=== PATIENT | male | born 1960 | race Caucasian/White ===

== ENCOUNTER 2019-02-07 00:28 | Emergency (ER) | payer OTHER ==
[2019-02-07 00:33] VITALS: BP 139/104; PULSE 90; TEMP 97.9; BMI 22.1
--- NOTE | 2019-02-07 01:03 | PDOC ---
History of Present Illness - General Chief Complaint: Injury Stated Complaint: intoxicated,lac to L wrist Time Seen by Provider: 02/07/19 00:33 History Source: Patient Exam Limitations: No Limitations - History of Present Illness Initial Comments: 02/07/19 01:03 This is a 58-year-old male who is intoxicated. Patient fell onto a glass table breaking the glass table and cutting his left wrist area. Patient tetanus is up- to-date. Patient did not hit his head. Patient did not pass out. Patient denies any other injuries. Allergies: as per nursing notes Past Medical History: none Social history: Lives with family. No smoking. No alcohol. No illicit drugs. Surgical history: None General: No fevers or chills, no weakness, no weight loss HEENT: No change in vision. No sore throat,. No ear pain CardioVascular: no chest discomfort. No shortness of breath Respiratory:No cough, or wheezing. Gastrointestinal: no nausea, vomiting, diarrhea or constipation, No rectal bleeding Genitourinary: No dysuria, hematuria, or frequency Musculoskeletal: No joint or muscle pain or swelling, left wrist laceration Neurologic: No headache, vertigo, dizziness or loss of consciousness Psychiatric: nor depression Skin: No rashes or easy bruising Endocrine: no increased thirst or abnormal weight change Allergic: no skin or latex allergy All other systems reviewed and normal GENERAL: The patient is awake, alert, and fully oriented, in no acute distress. HEAD: Normal with no signs of trauma. EYES: Pupils equal, round and reactive to light, extraocular movements intact, sclera anicteric, conjunctiva clear. EXTREMITIES: Left wrist: There is approximately a 2-1/2-3 cm laceration on the palmar side of the left wrist. Area was explored and palpated for foreign body there was no foreign body visible or patient did not express any discomfort on palpation. Neurovascular is intact. There is minimal amount of oozing from the laceration. NEUROLOGICAL: Normal speech, normal gait. PSYCH: Normal mood, normal affect. SKIN: Warm, Dry, normal turgor, no rashes or lesions noted. Procedure note laceration repair: She was cleaned with saline and anesthetized with 1% lidocaine no epinephrine. laceration was closed with a total of 7 sutures interrupted simple of 4-0 Ethilon. Bacitracin and a sterile dressing were applied patient tolerated well Past History - Past Medical History Allergies/Adverse Reactions: Allergies Allergy/AdvReac Type Severity Reaction Status Date / Time Penicillins Allergy Verified 02/07/19 00:37 Home Medications: Ambulatory Orders Unobtainable 02/07/19 COPD: No - Suicide/Smoking/Psychosocial Hx Smoking History: Unknown if ever smoked Have you smoked in the past 12 months: Yes Number of Cigarettes Smoked Daily: 20 If you are a former smoker, when did you quit?: 09/25/14 Cigars Per Day: 0 'Breaking Loose' booklet given: 09/27/14 Hx Alcohol Use: Yes Drug/Substance Use Hx: No Substance Use Type: Alcohol *Physical Exam - Vital Signs Last Vital Signs Temp Pulse Resp BP Pulse Ox 97.9 F 90 16 139/104 H 99 02/07/19 00:32 02/07/19 00:32 02/07/19 00:32 02/07/19 00:32 02/07/19 00:32 *DC/Admit/Observation/Transfer Diagnosis at time of Disposition: Laceration of wrist Qualifiers: Encounter type: initial encounter Laterality: left Qualified Code(s): S61.512A - Laceration without foreign body of left wrist, initial encounter - Discharge Dispostion Disposition: HOME Condition at time of disposition: Good Decision to Admit order: No - Referrals - Patient Instructions Additional Instructions: Suture removal in 6-7 days. Clean the area once or twice a day with some peroxide reapply bacitracin and a Band-Aid for the first 3 days then you can leave it open if you are in an area where it won't get dirty. Return to the emergency department immediately with ANY new, persistent or worsening symptoms. Continue any medications as previously prescribed by your physician. You should follow up with your primary doctor as soon as possible regarding today's emergency department visit. . Please make sure your doctor reviews the results of your emergency evaluation. Thank you for coming to the Emergency Department today for your care. It was a pleasure to see you today. Please note that your evaluation is INCOMPLETE until you follow-up with your doctor. - Post Discharge Activity
== END 2019-02-07 01:06 | disposition home or self-care (01) ==
LOC: JER 00:28 → FER 00:28
PROC: 0HQEXZZ Repair Left Lower Arm Skin, External Approach (ICD-10-PCS; principal; 2019-02-07)
DX: S61.512A Laceration without foreign body of left wrist, initial encounter (principal); W01.110A Fall on same level from slipping, tripping and stumbling with subsequent striking against sharp glass, initial encounter; Y93.89 Activity, other specified; Y92.89 Other specified places as the place of occurrence of the external cause; F17.210 Nicotine dependence, cigarettes, uncomplicated
CPT/HCPCS: 99282-25

== ENCOUNTER 2025-03-26 11:36 | Inpatient (IN) | payer OTHER, MEDICARE ==
[2025-03-26 12:48] LABS: ABSOLUTE IMMATURE GRANULOCYTES 0.01 x10^3/uL (0.0-0.031); BASOPHILS # 0.02 x10^3/uL (0.01-0.08); EOSINOPHIL % 0.8 % (0.8-7.0); EOSINOPHILS # 0.05 x10^3/uL (0.04-0.54); MCHC 34.2 g/dl (32.3-36.5); MEAN CELL VOLUME 103.5 fl (79.0-92.2); MEAN PLT VOLUME 11.3 fl (9.4-12.4); MONOCYTE # 0.41 x10^3/uL (0.30-0.82); MONOCYTE % 6.3 % (5.3-12.2); RDW 13.4 % (12.2-16.4)
[2025-03-26 12:59] LABS: INR 1.02 (0.83-1.09); PROTHROMBIN TIME (PATIENT) 11.3 SEC (9.7-13.0)
[2025-03-26 13:02] LABS: ACTIVATED PTT 28.7 SECONDS (25.2-36.5)
[2025-03-26 13:09] LABS: ALK PHOS 57 U/L (45-117); CO2 27 mmol/L (21-32); CREATININE 1.1 mg/dl (0.6-1.3); GLUCOSE,RANDOM 127 mg/dl (74-106); SGOT/AST 23 U/L (15-37); SGPT/ALT 22 U/L (7-52); TOT PROT 6.7 g/dl (6.4-8.2)
[2025-03-26] MEDS: FUROSEMIDE 40 MG/4 ML INJECTABLE VIAL IVPUSH ONE ×3 (14:20→21:37)
[2025-03-26] MEDS: ASPIRIN 81 MG CHEWABLE TABLETS PO ONE (14:20)
[2025-03-26] MEDS ORDERED: FUROSEMIDE 40 MG/4 ML INJECTABLE VIAL ONE (14:21)
[2025-03-26] MEDS ORDERED: ASPIRIN 81 MG CHEWABLE TABLETS ONE (14:21)
[2025-03-26 14:22] LABS: HIV INTERPRETATION NEGATIVE (NEGATIVE)
[2025-03-26 14:23] LABS: HCV DIAGNOSTIC IN-HOUSE W/RFLX NON-REACTIVE (NONREACTIVE)
[2025-03-26 20:25] VITALS: BMI 26.9
[2025-03-26] MEDS: ATORVASTATIN CA 80 MG TABLET (FP) PO SCH (21:36)
[2025-03-26] MEDS ORDERED: ATORVASTATIN CA 80 MG TABLET (FP) PO SCH (22:00)
[2025-03-27] MEDS ORDERED: FUROSEMIDE 40 MG/4 ML INJECTABLE VIAL IVPUSH SCH ×2 (06:00→10:00)
[2025-03-27 07:43] LABS: EOSINOPHIL % 2.1 % (0.8-7.0); EOSINOPHILS # 0.13 x10^3/uL (0.04-0.54); MCHC 34.3 g/dl (32.3-36.5)
[2025-03-27 07:45] LABS: ABSOLUTE IMMATURE GRANULOCYTES 0.03 x10^3/uL (0.0-0.031); BASOPHILS # 0.06 x10^3/uL (0.01-0.08); IMMATURE PLATELET FRACTION # 12.20 x10^3/uL; MEAN CELL VOLUME 102.9 fl (79.0-92.2); MONOCYTE # 0.58 x10^3/uL (0.30-0.82); MONOCYTE % 9.3 % (5.3-12.2); RDW 13.6 % (12.2-16.4)
[2025-03-27] MEDS: TAMSULOSIN HCL 0.4 MG CAP PO SCH (08:06)
[2025-03-27 08:16] LABS: GLUCOSE,RANDOM 109.0 mg/dL (74-106)
[2025-03-27 08:18] LABS: CO2 27.0 mmol/L (21-32)
[2025-03-27 08:22] LABS: CREATININE 1.41 mg/dL (0.55-1.3); LDL CHOLESTEROL (ONLY SJRH) 92.0 mg/dL (5-100)
[2025-03-27 08:31] LABS: N-TERMINAL BNP 1700.8 pg/mL (0-299.9)
[2025-03-27] MEDS: FUROSEMIDE 40 MG/4 ML INJECTABLE VIAL IVPUSH SCH (09:37)
[2025-03-27] MEDS: ASPIRIN 81 MG CHEWABLE TABLETS PO SCH (09:38)
[2025-03-27] MEDS ORDERED: HYDROCHLOROTHIAZIDE 12.5 MG CAPSULE (FP) PO SCH (10:00)
[2025-03-27] MEDS ORDERED: PATIENT'S OWN MEDICATION (NON-FORMULARY) (Losartan/Hydrochlorothiazide [Losartan-Hctz 100- PO SCH (10:00)
[2025-03-27] MEDS: EMPAGLIFLOZIN (JARDIANCE) 10 MG TABLET PO SCH (11:25)
[2025-03-27] MEDS ORDERED: ALBUTEROL SO4 2.5/IPRATROPIUM 0.5 INH SOL 3 ML VIAL.NEB. NEB PRN (13:43)
[2025-03-27] MEDS: LOSARTAN POTASSIUM 50 MG TABLET PO SCH (14:28)
[2025-03-28 08:15] LABS: ABSOLUTE IMMATURE GRANULOCYTES 0.03 x10^3/uL (0.0-0.031); EOSINOPHILS # 0.13 x10^3/uL (0.04-0.54); MONOCYTE # 0.61 x10^3/uL (0.30-0.82)
[2025-03-28 08:17] LABS: BASOPHILS # 0.05 x10^3/uL (0.01-0.08); EOSINOPHIL % 1.9 % (0.8-7.0); MCHC 33.9 g/dl (32.3-36.5); MEAN CELL VOLUME 102.3 fl (79.0-92.2); MEAN PLT VOLUME 11.2 fl (9.4-12.4); MONOCYTE % 9.0 % (5.3-12.2); RDW 13.7 % (12.2-16.4)
[2025-03-28 09:07] LABS: GLUCOSE,RANDOM 98.0 mg/dL (74-106)
[2025-03-28 09:08] LABS: TOT PROT 6.4 g/dl (6.4-8.2)
[2025-03-28 09:09] LABS: CO2 25.0 mmol/L (21-32)
[2025-03-28 09:10] LABS: ALK PHOS 56.0 U/L (40-150)
[2025-03-28 09:13] LABS: CREATININE 1.21 mg/dL (0.55-1.3); SGOT/AST 26.0 U/L (5-34); SGPT/ALT 22.0 U/L (0-55)
[2025-03-28] MEDS: ENOXAPARIN NA (PORCINE) 40 MG/0.4 ML DISP.SYRIN SQ SCH (09:49)
[2025-03-29] MEDS: EMPAGLIFLOZIN (JARDIANCE) 10 MG TABLET PO SCH (06:26)
[2025-03-29 09:43] LABS: ABSOLUTE IMMATURE GRANULOCYTES 0.03 x10^3/uL (0.0-0.031); BASOPHILS # 0.05 x10^3/uL (0.01-0.08); EOSINOPHIL % 2.1 % (0.8-7.0); EOSINOPHILS # 0.12 x10^3/uL (0.04-0.54); MCHC 34.2 g/dl (32.3-36.5); MEAN CELL VOLUME 103.3 fl (79.0-92.2); MEAN PLT VOLUME 10.2 fl (9.4-12.4); MONOCYTE # 0.56 x10^3/uL (0.30-0.82); MONOCYTE % 9.7 % (5.3-12.2); RDW 13.6 % (12.2-16.4)
[2025-03-29 10:04] LABS: GLUCOSE,RANDOM 147.0 mg/dL (74-106)
[2025-03-29 10:05] LABS: TOT PROT 6.6 g/dl (6.4-8.2)
[2025-03-29 10:06] LABS: CO2 25.0 mmol/L (21-32)
[2025-03-29 10:07] LABS: ALK PHOS 55.0 U/L (40-150)
[2025-03-29 10:10] LABS: CREATININE 1.29 mg/dL (0.55-1.3); SGOT/AST 26.0 U/L (5-34); SGPT/ALT 22.0 U/L (0-55)
[2025-03-30 08:20] LABS: ABSOLUTE IMMATURE GRANULOCYTES 0.02 x10^3/uL (0.0-0.031); BASOPHILS # 0.04 x10^3/uL (0.01-0.08); EOSINOPHIL % 1.9 % (0.8-7.0); EOSINOPHILS # 0.11 x10^3/uL (0.04-0.54)
[2025-03-30 08:21] LABS: IMMATURE PLATELET FRACTION # 14.50 x10^3/uL; MCHC 33.7 g/dl (32.3-36.5); MEAN CELL VOLUME 102.7 fl (79.0-92.2); MEAN PLT VOLUME 11.2 fl (9.4-12.4); MONOCYTE # 0.55 x10^3/uL (0.30-0.82); MONOCYTE % 9.5 % (5.3-12.2); RDW 13.2 % (12.2-16.4)
[2025-03-30 08:53] LABS: GLUCOSE,RANDOM 111.0 mg/dL (74-106); TOT PROT 6.5 g/dl (6.4-8.2)
[2025-03-30 08:54] LABS: CO2 25.0 mmol/L (21-32)
[2025-03-30 08:56] LABS: ALK PHOS 63.0 U/L (40-150)
[2025-03-30 08:59] LABS: CREATININE 1.22 mg/dL (0.55-1.3); SGOT/AST 30.0 U/L (5-34); SGPT/ALT 27.0 U/L (0-55)
[2025-03-30 11:49] VITALS: BP 122/90; RESP 18; TEMP 98
[2025-03-30 13:36] VITALS: PULSE 88
== END 2025-03-30 13:30 | disposition short-term general hospital (02) | DRG 291 ==
LOC: FER 11:36 → J4S 18:30
PROVIDERS: ADMIT Internal Medicine; ATTEND Internal Medicine
DX: I11.0 Hypertensive heart disease with heart failure (principal); I50.31 Acute diastolic (congestive) heart failure; I24.89 Other forms of acute ischemic heart disease; E87.1 Hypo-osmolality and hyponatremia; I25.10 Atherosclerotic heart disease of native coronary artery without angina pectoris; E78.5 Hyperlipidemia, unspecified; N40.0 Benign prostatic hyperplasia without lower urinary tract symptoms; I45.10 Unspecified right bundle-branch block; I34.2 Nonrheumatic mitral (valve) stenosis
CPT/HCPCS: 36415; 71046-TC-FY; 71275-TC; 76604; 80048; 80053; 80061; 82550; 82962; 83036; 83605; 83735; 83880; 84439; 84484; 85025; 85610; 85730; 86803; 87389; 87637-QW; 93005; 93306-TC; 93308; 99285-25; Q9967